=== PATIENT | male | born 1970 | race Caucasian/White ===

== ENCOUNTER → 2020-12-14 | Outpatient (CLI) | payer BC ==
--- NOTE | 2020-12-14 16:00 | US ---
EXAMINATION TYPE: US kidneys/renal and bladder DATE OF EXAM: 12/14/2020 COMPARISON: NONE CLINICAL HISTORY: N13.30 HYDRONEPHROSIS. pt states recent abnormal renal labs EXAM MEASUREMENTS: Right Kidney: 10.2 x 5.2 x 5.3 cm Left Kidney: 10.9 x 5.1 x 4.6 cm Right Kidney: Appeared wnl Left Kidney: Appeared wnl Bladder: Not fully distended, physician states for pt to be scanned with bladder empty There is no evidence for hydronephrosis at this point in time. No nephrolithiasis is seen. No yoko s are identified. Cortical medullary differentiation is maintained. IMPRESSION: Normal kidneys.
== END | disposition home or self-care (01) ==
LOC: RADUSWWP 15:34
PROVIDERS: ATTEND Urology
DX: N13.30 Unspecified hydronephrosis (principal)
CPT/HCPCS: 76770